=== PATIENT | female | born 1955 | race Caucasian/White ===

== ENCOUNTER 2019-06-08 07:53 | Day surgery (SDC) | payer MEDICARE ==
[2019-06-08] MEDS ORDERED: Dextrose 5%-Lactated Ringers 1,000 ML IV SCH (09:00)
[2019-06-08] MEDS ORDERED: fentaNYL 100 MCG/2 ML SDV ONE (10:05)
[2019-06-08] MEDS ORDERED: Midazolam 1 MG/ML 2 ML SDV ONE (10:05)
[2019-06-08] MEDS ORDERED: Propofol 200 MG/20 ML SDV ONE (10:05)
--- NOTE | 2019-06-14 13:14 | OR ---
DATE OF PROCEDURE: 06/08/2019 SURGEON: Andrés Wallis MD PREOPERATIVE DIAGNOSIS: Indications for screening colonoscopy. POSTOPERATIVE DIAGNOSIS: Extensive left colonic diverticulosis with mild stricturing at the sigmoid colon. OPERATIVE PROCEDURE: Flexible colonoscopy. ANESTHESIA: IV sedation. INDICATION FOR PROCEDURE: The patient was sent for screening colonoscopy. She does have some lower abdominal pain and some issues with constipation. Plan is to proceed with a colonoscopy with biopsies and/or polypectomy as indicated. Potential risks including bleeding and perforation were discussed, and the patient wishes to proceed. DETAILS OF PROCEDURE: The patient was taken to the operating room and placed in a left lateral decubitus position. IV sedation was administered, after which the initial digital rectal exam was performed that was unremarkable. Colonoscope was then passed to the level of the cecum. The prep was fairly good. There was some quite extensive diverticulosis in the left colon and area of the sigmoid colon was somewhat tortuous and mildly narrowed, but the scope could easily advance through that area. Apart from that, there were no areas of significant acute inflammation, i.e. there did not appear to be any element of diverticulitis, nor was there any colitis seen on the remainder of exam, and likewise no polyps or other signs of neoplasia. Scope was then withdrawn, the above findings reconfirmed, and the procedure then concluded. Recommendation would be to repeat the colonoscopy in 10 years, as she has no personal or family history of colonic neoplasia. We will add Colace 100 mg b.i.d. to her medical regimen, which may help a little bit with the issue of constipation, which may be to some degree related to the diverticular disease in terms of sigmoid colon narrowing. Andrés Wallis MD /[id number]
== END 2019-06-08 11:40 | disposition home or self-care (01) ==
LOC: JP.SDS 07:53
PROVIDERS: ATTEND Surgery
DX: Z12.11 Encounter for screening for malignant neoplasm of colon (principal); K57.30 Diverticulosis of large intestine without perforation or abscess without bleeding; K56.699 Other intestinal obstruction unspecified as to partial versus complete obstruction; I25.10 Atherosclerotic heart disease of native coronary artery without angina pectoris; I10 Essential (primary) hypertension; K21.9 Gastro-esophageal reflux disease without esophagitis; F32.9 Major depressive disorder, single episode, unspecified; Z88.5 Allergy status to narcotic agent; Z88.6 Allergy status to analgesic agent
CPT/HCPCS: 45378; J2250; J2704; J3010; J7042

== ENCOUNTER 2021-05-11 09:21 | Inpatient (IN) | payer MEDICARE ==
[~2021-05-11 09:21] MED LIST: Bupivacaine 0.5% 50 ML MDV ONE; Dexamethasone 4 MG/ML SDV ONE; Glycopyrrolate 0.2 MG/ML 5 ML MDV ONE; Lidocaine 1% with EPINEPHrine 1:100,000 50 ML MDV ONE; Magnesium Sulfate/Water 2 GM in Premix Bag 1 BAG IV ONE; Neostigmine Methylsulfate 1 MG/ML 5 ML Syringe ONE; Ondansetron 4 MG/2 ML SDV ONE; Propofol 200 MG/20 ML SDV ONE; Rocuronium 50 MG/5 ML Vial ONE; Succinylcholine 200 MG/10 ML MDV ONE; fentaNYL 250 MCG/5 ML SDV ONE
[2021-05-11] MEDS ORDERED: Dextrose 5%-Lactated Ringers 1,000 ML IV SCH (09:30)
[2021-05-11] MEDS ORDERED: Scopolamine 1.5 MG Transdermal Patch TOP SCH (09:30)
[2021-05-11] MEDS ORDERED: Acetaminophen 500 MG Tab PO ONE (09:30)
[2021-05-11] MEDS ORDERED: Gabapentin 300 MG Cap PO ONE (09:30)
[2021-05-11] MEDS: Meropenem 500 MG SDV ONE ×2 (09:37→14:10)
[2021-05-11] MEDS ORDERED: Magnesium Sulfate/Water 2 GM in Premix Bag 1 BAG IV ONE (10:00)
[2021-05-11] MEDS ORDERED: Ketamine 50 MG in Sodium Chloride 0.9% 49.5 ML IV SCH (10:00)
[2021-05-11] MEDS ORDERED: Ketamine 500 MG/5 ML MDV IV SCH (10:00)
[2021-05-11] MEDS ORDERED: Ropivacaine 30 ML, dexAMETHasone 8 MG, EPINEPHrine 0.4 MG, Sodium Chloride 0.9% 47.6 ML NERVRT SCH ×4 (10:00)
[2021-05-11] MEDS: ceFAZolin 2 GM in Premix Bag 1 BAG IV ONE ×2 (12:04→12:54)
[2021-05-11] MEDS ORDERED: diphenhydrAMINE 25 MG Cap PO PRN (12:28)
[2021-05-11] MEDS ORDERED: HYDROmorphone/Normal Saline 15 MG/30 ML PCA IV PRN (12:28)
[2021-05-11] MEDS ORDERED: Ondansetron 4 MG/2 ML SDV IVPUSH PRN ×2 (12:28→17:00)
[2021-05-11] MEDS ORDERED: diphenhydrAMINE 50 MG/ML SDV IVPUSH PRN ×2 (12:28→17:00)
[2021-05-11] MEDS ORDERED: Naloxone 0.4 MG/ML SDV IVPUSH PRN (12:28)
[2021-05-11] MEDS ORDERED: ePHEDrine 50 MG/ML SDV ONE (13:33)
[2021-05-11] MEDS ORDERED: Lactated Ringers 1,000 ML ONE (14:04)
[2021-05-11] MEDS ORDERED: Sodium Chloride 0.9% 10 ML ONE (14:20)
[2021-05-11] MEDS ORDERED: Meropenem 500 MG SDV ONE (14:20)
[2021-05-11] MEDS ORDERED: hydrOXYzine HCL 100 MG/2 ML SDV IM ONE (15:22)
[2021-05-11] MEDS ORDERED: Cyclobenzaprine 10 MG Tab PO PRN (16:36)
[2021-05-11] MEDS ORDERED: Calcium Gluconate 10% 1 GM/10 ML SDV IVPUSH PRN (17:00)
[2021-05-11] MEDS ORDERED: hydrOXYzine HCL 100 MG/2 ML SDV IM PRN (17:00)
[2021-05-11] MEDS ORDERED: Metoclopramide 10 MG/2 ML SDV IVPUSH PRN (17:00)
[2021-05-11] MEDS ORDERED: Acetaminophen 500 MG Tab PO PRN (17:00)
[2021-05-11] MEDS ORDERED: Labetalol 20 MG/4 ML Syringe IVPUSH PRN (17:00)
[2021-05-11] MEDS: Acetaminophen 500 MG Tab PO SCH (17:46)
[2021-05-11] MEDS ORDERED: MVI, Adult with Vitamin K 10 ML, Thiamine 200 MG, Zinc/Copper/Manganese/Selenium 1 ML i... IV SCH ×4 (18:00)
[2021-05-11] MEDS ORDERED: Pantoprazole 40 MG Vial IVPUSH SCH (18:00)
[2021-05-11] MEDS: cefOXitin 2 GM in Sodium Chloride 0.9% 50 ML IV SCH (20:27)
[2021-05-11] MEDS: traZODone 50 MG Tab PO SCH (21:30)
[2021-05-11] MEDS: Acyclovir 200 MG Cap PO SCH (21:44)
[2021-05-11] MEDS: Gabapentin 300 MG Cap PO SCH (21:44)
[2021-05-11] MEDS: Tamsulosin 0.4 MG Cap.ER PO SCH (21:44)
[2021-05-12] MEDS: Dextrose 5%-Lactated Ringers 1,000 ML IV SCH ×2 (00:16→05:53)
[2021-05-12] MEDS: cefOXitin 2 GM in Sodium Chloride 0.9% 50 ML IV SCH ×4 (02:41→19:45)
[2021-05-12] MEDS: Acetaminophen 500 MG Tab PO SCH ×3 (02:42→17:43)
[2021-05-12] MEDS ORDERED: Iopamidol 612 MG/ML 50 ML SDV PO STA (03:55)
[2021-05-12] MEDS ORDERED: Lactated Ringers 1,000 ML IV SCH (07:15)
[2021-05-12] MEDS: Potassium Phos in 0.9 % NaCl 15 MMOL in Premix Bag 1 BAG IV SCH ×8 (08:18→19:44)
[2021-05-12] MEDS ORDERED: Non-Formulary Medication 1 Each TOP SCH (08:45)
[2021-05-12] MEDS ORDERED: Gabapentin 300 MG Cap PO SCH (09:00)
[2021-05-12] MEDS ORDERED: Tamsulosin 0.4 MG Cap.ER PO SCH (09:00)
[2021-05-12] MEDS ORDERED: Celecoxib 200 MG Cap PO SCH (09:00)
[2021-05-12] MEDS ORDERED: Acyclovir 200 MG Cap PO SCH (09:00)
--- NOTE | 2021-05-12 09:21 | CR ---
[facility] HISTORY: Postbariatric surgery revision FINDINGS: Patient swallowed water-soluble contrast. Upright views of the abdomen show no evidence of extravasation or obstruction. IMPRESSION: Status post bariatric surgery revision No extravasation or obstruction seen
[2021-05-12] MEDS ORDERED: ESTRADIOL 0.01% VAG SCH (11:00)
[2021-05-12] MEDS: SCOPOLAMINE PATCH CHECK TOP SCH (11:10)
[2021-05-12] MEDS: HYDROmorphone 2 MG Tab PO PRN ×2 (11:58→15:55)
[2021-05-12] MEDS: Pantoprazole 40 MG Delayed-Release Granules 1 Packet PO SCH (15:49)
[2021-05-12] MEDS ORDERED: MVI, Adult with Vitamin K 10 ML, Thiamine 200 MG, Zinc/Copper/Manganese/Selenium 1 ML i... IV SCH ×4 (16:00)
[2021-05-12] MEDS ORDERED: Magnesium Hydroxide 400 MG/5 ML Susp 30 ML Cup PO PRN (18:04)
[2021-05-12] MEDS: Polyethylene Glycol 3350 Powder 17 GM Packet PO PRN (19:43)
[2021-05-12] MEDS: Acyclovir 200 MG Cap PO SCH (20:00)
[2021-05-12] MEDS: Gabapentin 300 MG Cap PO SCH (20:00)
[2021-05-12] MEDS: atorvaSTATin 20 MG Tab PO SCH (20:00)
[2021-05-12] MEDS: Tamsulosin 0.4 MG Cap.ER PO SCH (20:00)
[2021-05-12] MEDS: traZODone 50 MG Tab PO SCH (20:00)
[2021-05-13] MEDS: HYDROmorphone 2 MG Tab PO PRN ×2 (01:10→10:38)
[2021-05-13] MEDS: Acetaminophen 500 MG Tab PO SCH ×3 (01:10→17:30)
[2021-05-13] MEDS: cefOXitin 2 GM in Sodium Chloride 0.9% 50 ML IV SCH (01:11)
[2021-05-13] MEDS ORDERED: Cyanocobalamin (Vitamin B12) 1,000 MCG/ML SDV IM ONE (09:00)
[2021-05-13] MEDS: Polyethylene Glycol 3350 Powder 17 GM Packet PO PRN (09:03)
[2021-05-13] MEDS: Liraglutide (rDNA Origin) 0.6 MG/0.1 ML 3 ML Pen SUBCUT SCH (09:04)
[2021-05-13] MEDS: Docusate Sodium 100 MG Cap PO SCH ×2 (09:04→20:12)
[2021-05-13] MEDS: Bisacodyl 5 MG Tab PO SCH ×2 (09:07→20:12)
[2021-05-13] MEDS: SCOPOLAMINE PATCH CHECK TOP SCH (09:07)
--- NOTE | 2021-05-13 12:16 | PN ---
DATE OF SERVICE: 05/13/2021 SUBJECTIVE: Tiffanie is postop day #1. She states her pain is controlled. She has been up, ambulating. Vital signs have been stable. REVIEW OF SYSTEMS: Remainder of review of systems negative for any pertinent positives or negatives. OBJECTIVE: GENERAL: Veronique is a pleasant 66-year-old female. She is alert and orientated. VITAL SIGNS: TPR 97.5, 61, 16, blood pressure is 107/63. HEENT: Negative. NECK: Supple. HEART: Regular rate and rhythm. LUNGS: Clear. ABDOMEN: Dressings dry and intact. Abdominal binder is on. EXTREMITIES: Without peripheral edema. ASSESSMENT: Exploratory laparotomy with: 1. Revision of the jejunojejunostomy component of the Radha-en-Y gastric bypass surgery. 2. Separate small bowel strictureplasty. 3. Resection of peritoneal nodules x2. 4. Removal of portion of intraperitoneal mesh. 5. Placement of Interceed mesh x2. POSTOPERATIVE DIAGNOSES: 1. High-grade persistent small-bowel obstruction with marked deserosalization of the jejunojejunostomy. 2. Intraperitoneal nodules involving: a. Surface of the cecum 7 cm. b. Mesentery of the Radha limb 8 mm. 3. Descending small bowel stricture. 4. Portion of intraperitoneal mesh with sharp peritoneal surface protruding plastic catheter. 5. Date of procedure: 05/11/2021. Surgeon: Andrés Wallis MD. PLAN: 1. Victoza 0.6 subcu daily. 2. Step 3 gastric bypass diet. 3. Saline lock IV. 4. Colace 100 mg p.o. b.i.d. 5. Dulcolax 2 tablets p.o. b.i.d. 6. May shower. 7. Continue use of incentive spirometer. 8. We will evaluate p.r.n. or in a.m. Juliana Hoskins PA-C /[id number]
[2021-05-13] MEDS: Pantoprazole 40 MG Delayed-Release Granules 1 Packet PO SCH (17:31)
[2021-05-13] MEDS: Gabapentin 300 MG Cap PO SCH (20:12)
[2021-05-13] MEDS: traZODone 50 MG Tab PO SCH (20:12)
[2021-05-13] MEDS: Tamsulosin 0.4 MG Cap.ER PO SCH (20:12)
[2021-05-13] MEDS: atorvaSTATin 20 MG Tab PO SCH (20:13)
[2021-05-13] MEDS: Acyclovir 200 MG Cap PO SCH (20:13)
[2021-05-14] MEDS: Acetaminophen 500 MG Tab PO SCH ×2 (01:55→09:00)
[2021-05-14] MEDS: Bisacodyl 5 MG Tab PO SCH (09:01)
[2021-05-14] MEDS: Docusate Sodium 100 MG Cap PO SCH (09:01)
[2021-05-14] MEDS: Liraglutide (rDNA Origin) 0.6 MG/0.1 ML 3 ML Pen SUBCUT SCH (09:40)
--- NOTE | 2021-05-19 08:43 | PN ---
DATE OF SERVICE: 05/12/2021 The patient is status post small bowel resection with revision of jejunojejunostomy as well as stricturoplasty and removal of 2 peritoneal nodules yesterday. Clinically has done well overnight, not requiring much in the way of pain medicine. We will switch over to oral pain medicine today and go up to step 2 diet. Her phosphate is fairly low, we will give her some K-Phos IV. Otherwise, maximize activity. Andrés Wallis MD /[id number]
--- NOTE | 2021-05-19 11:58 | DISCH ---
FINAL DIAGNOSES: 1. High-grade partial small bowel obstruction with marked decompensation of preexisting jejunojejunostomy. 2. Intraperitoneal nodule involving: a. Surface of cecum. b. Distal mesentery of Radha limb. 3. Secondary small bowel stricture. 4. Portion of intraperitoneal mesh with sharp pointed surface, potentially putting at risk the patient for underlying visceral injury. 5. Bariatric surgery status. 6. History of reactive hypoglycemia. 7. History of depression. 8. History of hypertension. OPERATIVE PROCEDURES: Done on 05/11, exploratory laparotomy with: 1. Revision of jejunojejunostomy component of Radha-en-Y gastric bypass. 2. Separate small bowel stricturoplasty. 3. Resection of peritoneal nodules overlying surface of cecum and mesentery of distal Radha limb. 4. Removal of portion of intraperitoneal mesh. 5. Placement of Interceed mesh x2 to limit recurrent adhesion formation. SUMMARY: This is a 66-year-old female presenting with ongoing postprandial abdominal pain and bloating in the central abdomen. After preop evaluation and discussion, decision was made to proceed with exploratory laparotomy. Upon entering the abdomen, because of the pre- existing mesh, the patient was noted to have markedly dilated and decompensated jejunojejunostomy. There appeared to be some stricturing at the point of exit into the common limb due to adhesions. It was felt this was best resected as the bowel involving the current jejunojejunostomy was dilated up to the size of a baseball. The 3 components of the Radha limb were then divided and reconstructed. The patient, somewhat distally, had a separate stricture related to adhesion formation chronically, and this stricture was treated with stricturoplasty. Two probably benign peritoneal nodules over the cecum and one on the distal small Radha limb mesentery were also noted and were excised and sent for histologic evaluation and some poignant areas of pre-existing mesh was placed. We did leave the present mesh in place, being careful to wall off the mesh with antibiotic-soaked gauze while the bowel procedures were being undertaken and then segregate the instruments and get new gown and gloves after the bowel phase had been completed. Postoperatively, the patient has done well. The patient's reactive hypoglycemia would be best treated by means of a GLP1 agonist. medication is not available for the patient, but apparently, Victoza most likely will be insured. She was placed on Victoza 0.6 mg subcutaneous daily keep the blood sugars quite steady in the mid 80s overall during the remainder of the hospitalization. If this ends up not being covered she is instructed to use Acarbose in the meantime. Otherwise, she can continue the present medications plus only Tylenol for pain, and she will be instructed to measure and record her blood sugars q.i.d. more or less randomly and if she feels that her blood sugars are low and record the time, to bring it to the next appointment which will be with Juliana Hoskins at [facility] on 05/22/2021. She will be on a step-3 diet until the first appointment. /[id number]
--- NOTE | 2021-05-20 14:53 | OR ---
DATE OF PROCEDURE: 05/11/2021 SURGEON: Andrés Wallis MD PREOPERATIVE DIAGNOSES: 1. High-grade partial small bowel obstruction with a marked decompensation of jejunojejunostomy. 2. Intraperitoneal nodule involving: a. Surface of cecum. b. Mesentery of distal Radha limb. 3. Secondary small bowel stricture. 4. Portion of intraperitoneal mesh with a sharp pointed surface. OPERATIVE PROCEDURES: Exploratory laparotomy with: 1. Revision of jejunojejunostomy component of Radha-en-Y gastric bypass (21058). 2. Separate small bowel stricturoplasty (28423). 3. Resection of peritoneal nodule involving: a. Surface of cecum (41554). b. Surface of the distal Radha limb of small bowel mesentery (50499). 4. Removal of a portion of intraperitoneal mesh (34747). 5. Placement of Interceed mesh x2 to limit recurrent adhesion formation between pelvic and abdominal wall and underlying viscera (35907). ANESTHESIA: General. INDICATIONS FOR PROCEDURE: This is a 66-year-old female presenting with postprandial bloating and nausea consistent with a partial small bowel obstruction. The plan is to proceed with an exploratory laparotomy with small bowel resection as indicated and other procedures based on intraoperative findings. This will require traversing some pre-existing mesh if small bowel resection is required. She is aware this would put the mesh in a relatively higher risk of infection, but unless there is a gross spillage on the mesh, we would have that walled off with antibiotic sponges and secure new gloves and gowns and instruments upon completion of the bowel work, and thereafter leaving the mesh in place as removal of the mesh would virtually 100% of the time require a secondary operation for recurrent hernia in the future. Otherwise, potential risks including bleeding, infection, leaks from various GI tract closures, problems with bowel obstruction recurring over time as well as possibility of cardiopulmonary, septic, or hemorrhagic complications leading to were discussed, and the patient wishes to proceed. DETAILS OF PROCEDURE: The patient was taken to the operating room and placed in a supine position. After general endotracheal anesthesia was induced, a Suarez catheter was inserted and the abdomen prepped and draped. A midline incision from the umbilicus upward roughly 1- 1/2 handsbreadth was then made and carried down into the peritoneal cavity. There were some minor adhesions between the small bowel, transverse colon, and the mesh. These were taken down with a combination of blunt dissection and cautery. One area of the small bowel loop that came up had been densely adherent for some time it would appear, and that did have a stricture develop as a result of that fixation and this was subsequently repaired by means of a stricturoplasty. Upon entering the peritoneal cavity, the striking finding was the jejunojejunostomy having been dilated up to roughly a baseball size and obviously decompensated. The point of obstruction appeared to be narrowing of the outlet of the jejunojejunostomy, i.e. the origin of common limb which had been angulated by adhesions. Given the findings, the decision was made to proceed with a resection and revision of the jejunojejunostomy component of Radha-en- Y gastric bypass. The patient was also noted to have 2 peritoneal nodules, one was an elongated frondlike nodule measuring 7 cm before it collapsed over the surface of the cecum and the second was an 8 mm nodule over the distal mesentery of the Radha limb. Both of these were excised and sent as a separate specimen. At this point, gauze soaked with meropenem and Zyvox antibiotic solution was placed along the wound edges and the bowel work then was initiated. The 3 components leading to the jejunojejunostomy, i.e. the Radha limb, biliopancreatic limb, and common limb were all divided more or less adjacent to the anastomosis with DONNA tay as was the underlying mesentery. The small bowel continuity was initially reconstructed with a [id number] anastomosis between what had been the distalmost Radha limb and the proximal most common limb with 2 internal firings of the Endo-DONNA 60 mm stapler. Common opening was closed transversely with the same stapler and the angles of anastomosis were reinforced with 3-0 Vicryl stitch, the mesenteric defect closed with 2-0 Vicryl stitch. The Radha-en-Y anatomy was then reestablished with anastomosis roughly 20 cm distal to the first anastomosis between the bowel at that level and the biliopancreatic limb. This was accomplished with a single internal firing of the Endo-DONNA 60 mm stapler, the common opening being closed transversely with the same stapler. The angles of anastomosis were once again reinforced with 3-0 Vicryl stitch, the mesenteric defect closed with a 2-0 silk stitch. The area of stricturing of the small bowel which was more or less in the mid common limb was then addressed by making an antimesenteric border incision over the point of stricturing and then entering two 60 mm DONNA loads within the lumen more or less firing these [id number] with the bowel flipped over on itself, the common opening was closed with the purple load, the angles of anastomosis were reinforced with some 3-0 Vicryl stitch, and in this case there was no mesenteric defect. At this point, the abdomen was irrigated with meropenem and Zyvox-containing saline solution and the previously placed antibiotic-soaked gauze was removed. There was zero gross spillage of GI contents during the course of the procedure surgical instruments as well as the common limbs were all then obtained. The patient was noted to have sharp plastic protruding from the mesh which would put the patient at risk for a possible bowel injury. This occurred at 2 points where the mesh had been divided and this sharp material was then removed and sent as a separate specimen. Two Interceed meshes were then placed underneath the incision, from there down toward the pelvis to limit recurrent adhesion formation, and then the previously divided mesh was then closed with a 0 Prolene stitch. Once this was accomplished, the fascial edges were approximated over this with a running #2 Vicryl stitch, subcutaneous tissue with 2 layers of 3-0 and 4-0 Vicryl stitch deep, and tay for the skin, and dressing applied. Prior to closure, bilateral transversus abdominis plane blocks were placed and the incision itself was anesthetized with 1% lidocaine mixed with Marcaine. The patient was taken to the recovery room in satisfactory condition. Andrés Wallis MD /[id number]
== END 2021-05-14 11:28 | disposition home or self-care (01) | DRG 330 ==
LOC: JP.SDS 09:21 → EDSTATUS 13:15 → JP.SDSSCHI 15:15 → JP.MS 15:16
PROVIDERS: ADMIT Surgery; ATTEND Surgery
PROC: 0DBA0ZZ Excision of Jejunum, Open Approach (ICD-10-PCS; principal; 2021-05-11)
PROC: 0DB80ZZ Excision of Small Intestine, Open Approach (ICD-10-PCS; 2021-05-11)
PROC: 0DBW0ZZ Excision of Peritoneum, Open Approach (ICD-10-PCS; 2021-05-11)
PROC: 0WCG0ZZ Extirpation of Matter from Peritoneal Cavity, Open Approach (ICD-10-PCS; 2021-05-11)
PROC: 3E0M05Z Introduction of Adhesion Barrier into Peritoneal Cavity, Open Approach (ICD-10-PCS; 2021-05-11)
DX: K95.89 Other complications of other bariatric procedure (principal); K91.30 Postprocedural intestinal obstruction, unspecified as to partial versus complete; K66.8 Other specified disorders of peritoneum; Z79.899 Other long term (current) drug therapy; Z88.5 Allergy status to narcotic agent
CPT/HCPCS: 36415; 74240; 74240-26; 80053; 82728; 82947; 83735; 83880; 84100; 85025; 85027; 88300; 88305; 88307; 94762; 97161-GP; 97530-GP; 97535-GP; A9270-GY; C9113; J0171; J0330; J0690; J0694; J1100; J1170; J2020; J2185; J2405; J2704; J2710; J2795; J3010; J3410; J3411; J3420; J3475; J3490; J7120; J7121; Q9967